=== PATIENT | male | born 1980 | race Caucasian/White ===

== ENCOUNTER 2024-03-22 17:15 | Emergency (ER) | payer OTHER, MEDICAID, SELFPAY ==
[2024-03-22 17:23] VITALS: BP 170/91; PULSE 94; RESP 15; TEMP 36.5; O2SAT 97; BMI 35.0
[2024-03-22 18:09] LABS: Ur Creatinine Normal (Normal); Ur Specific Gravity Normal (Normal); Urine Amphetamines Negative (Negative); Urine Barbiturates Negative (Negative); Urine Benzodiazepines Negative (Negative); Urine Cocaine Negative (Negative); Urine MDMA Negative (Negative); Urine Methadone Negative (Negative); Urine Methamphetamines Negative (Negative); Urine Opiates Negative (Negative); Urine Oxycodone Negative (Negative); Urine Phencyclidine Negative (Negative); Urine THC Positive (Negative); Urine Tricyclic Antidepressant Negative (Negative); Urine pH Normal (Normal)
[2024-03-22 18:17] LABS: Add Manual Diff / Slide Review NO; Basophils Absolute Auto 100 /uL (0-100); Basophils Percent Auto 0.7 % (0-2); Eosinophils Absolute Auto 100 /uL (0-450); Eosinophils Percent Auto 1.2 % (2-4); Hemoglobin 15.5 g/dL (13.5-17.5); Lymphocytes Absolute Auto 2200 /uL (1100-4500); Lymphocytes Percent Auto 24.3 % (25-40); Mean Corpuscular HGB Conc 34.5 % (30-36); Mean Corpuscular Hemoglobin 29.3 PG (26-34); Monocytes Absolute Auto 800 /uL (0-900); Monocytes Percent Auto 8.8 % (3-14); Neutrophils Absolute Auto 5900 /uL (1500-7000); Platelet Count 259 X10^3/uL (150-400); Red Cell Distribution Width 13.4 % (11.6-14.8); White Blood Cell Count 9.1 X10^3/uL (4.5-11.0)
[2024-03-22 18:17] LABS: COVID19 -Nasal RAPID Negative (Negative)
[2024-03-22 18:28] LABS: Acetaminophen < 10 ug/mL (10-30); Alanine Aminotransferase 40 IU/L (<50); Albumin 4.5 g/dL (3.5-5.0); Albumin Globulin Ratio 1.5 (1.0-2.8); Alkaline Phosphatase 110 U/L (38-126); Aspartate Aminotransferase 40 IU/L (17-59); BUN Creatinine Ratio 14.6 (6-22); Bilirubin Total 0.6 mg/dL (0.2-1.3); Blood Urea Nitrogen 13 mg/dL (9-20); Carbon Dioxide 24 mmol/L (22-32); Chloride 104 mmol/L (98-107); Estimated Glomerular Filt Rate > 60 mL/min (>60); Ethanol (ETOH) < 10 mg/dL; Globulin 3.1 g/dL (1.7-4.1); Glucose 99 mg/dL (70-100); HEMOLYSIS < 15 (0-50); Potassium 3.5 mmol/L (3.4-5.1); Salicylate < 1.0 mg/dL (<20); Sodium 136 mmol/L (137-145); Total Protein 7.6 g/dL (6.3-8.2)
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
--- NOTE | 2024-03-22 18:54 | CM.SWNOTE ---
ED RN ENDOCRINOLOGY Note Bed Search: RN ENDOCRINOLOGY calls [facility], it is reported that they are at capacity. RN ENDOCRINOLOGY calls [facility], it is reported that they are at capacity but will have discharges tomorrow, they can accept a packet for review. RN ENDOCRINOLOGY calls [facility], it is reported that they have beds and can review patient. Patient awaiting ED provider evaluation and documentation at this time. ED team to seek voluntary inpatient placement upon medical clearance. Korina Jordan, DATA MODELING SPECIALIST
[2024-03-22 18:59] LABS: Free T4, Direct Thyroxine 1.11 ng/dL (0.78-2.19)
[2024-03-22 19:13] LABS: Thyroid Stimulating Hormone 1.87 uIU/mL (0.47-4.68)
--- NOTE | 2024-03-22 22:09 | PC.NURSE ---
Addendum entered by Rosanne Estrella CNA 03/23/24 07:04: LEARNING COACH note: Went to take vitals at 0700. Patient asked if I had any luck finding him a place. I told patient I checked in areas above [place], but I didn't know where his cut off was so I called down as far as [place]. I asked where exactly I could call, like what city was far enough from [place]. Patient said well I guess I have no choice where I go. Told patient I would let the nurses know and that hopefully our social services technician would have more luck. Addendum entered by Rosanne Estrella CNA 03/23/24 02:23: LEARNING COACH note: Continued attempts to find placement: [facility]: 2238 spoke w/ [place], no voluntary beds [place] [facility]: [address], no beds try in the morning [facility]: 2258 on hold for 10 minutes. Patient told me he didn't want to go anywhere near [place]. When I asked for clarification patient and asked why patient didn't want to go anywhere near [place], patient told me he is ... being stalked.... I asked if I found placement for in [place] or [place] would he be willing to go. Patient refused and told me that I wasn't listening and he began talking in a terse tone about how no one listens to him. I tried to listen to him, and asked so [place] is a no go? Let me try to find something else. RN aware. Addendum entered by Rosanne Estrella CNA 03/22/24 22:33: Spoke to Katerin at [facility]. [facility] declined patient saying he doesn't meet criteria and you're allowed to be psychotic. Passed this to discharge coordinatorJESS Holman Original Note: LEARNING COACH note: Spoke to Katerin at [facility] for possible transfer. Spoke at 2208. Katerin will review. Facility does have beds tonight.
[2024-03-22] MEDS: OLANZapine ODT 10 MG TAB PO (23:24)
[2024-03-23 07:03] VITALS: BP 179/90; PULSE 89; RESP 18; O2SAT 98
[2024-03-23 13:26] VITALS: BP 166/107; PULSE 108; RESP 22; TEMP 36.6; O2SAT 98
--- NOTE | 2024-03-23 13:50 | CM.SWNOTE ---
ED NET DEVELOPER CONSULTANT Note NET DEVELOPER CONSULTANT continues bed search. Bed search is limited due to patient's concern for being close to or south of [place]. NET DEVELOPER CONSULTANT calls [facility], it is reported that they do not have beds but suggested calling over the middle of the night to see if there are discharges. NET DEVELOPER CONSULTANT calls [facility], it is reported that they are full. NET DEVELOPER CONSULTANT calls [facility], it is reported that they have beds and can review patient. NET DEVELOPER CONSULTANT faxes clinicals for review. [facility] intake calls back and states that they cannot take him as a voluntary patient as they are worried he won't sign into the hospital. It is reported that they would take him if he was detained. NET DEVELOPER CONSULTANT consults with DCR and they recommend [facility] as an option and identifying if the patient has a phone and could coordinate connecting in the community with [facility] team. After consult it is determined that patient does not meet criteria for detainment at this time. Andrea RN informs NET DEVELOPER CONSULTANT that last night patient was observed to be talking to himself in a fluid conversation. RN states he thought patient was on the phone. Andrea reports that patient was talking about all things patient reported during NET DEVELOPER CONSULTANT Assessment and in triage. It is reported that patient got up in the room and was agitated and then eventually went to sleep. NET DEVELOPER CONSULTANT enters room to speak with patient, patient was resting most of the morning. Patient presents as A/Ox4. NET DEVELOPER CONSULTANT discusses the limitations in placing patient at [facility]. Patient states he does not want to go to a hospital near or past [place]. NET DEVELOPER CONSULTANT discusses [facility] team, patient states he does not have a phone. Patient states he already met with them and he references Sheba with [facility]. He states that they did not help him. NET DEVELOPER CONSULTANT explains that [facility] is through [facility], patient declines interest in meeting with them. Patient presents with increasing agitation stating that this state ruined his life, he states he can't work, he lost his housing. Patient states he has been in [place] for a week and he does not feel safe here. Patient continues to discuss all that has happened to him and concern for this ongoing threat. Patient states he does not have any friends or family. Patient states his sister was murdered and he does not know where his nephews are. Patient states that he has made several reports to and they have not done anything. Patient states that no one believes him. NET DEVELOPER CONSULTANT provided patient with [facility] brochure, NET DEVELOPER CONSULTANT offers bus passes, retirement resources and community resources and patient declines. Patient presents with frustration and states that this was a waste of his time and now he needs to find a place to stay. ED provider discharges patient upon medical clearance, patient refuses to sign discharge paperwork. NET DEVELOPER CONSULTANT encouraged patient to f/u with [facility] team. BRETT LugoSW
== END 2024-03-23 13:45 | disposition home or self-care (01) ==
PROVIDERS: Emergency Medicine; Emergency Provider Emergency Medicine
DX: F22 Delusional disorders (principal); Z11.52 Encounter for screening for COVID-19
CPT/HCPCS: 36415; 80053; 80305; 80320; 80329; 81003; 84439; 84443; 85025; 87635; 99283; 99284; G0480